=== PATIENT | female | born 1970 | race Caucasian/White ===

== ENCOUNTER 2017-07-30 07:19 | Emergency (ER) | payer OTHER ==
[~2017-07-30] VITALS: Ht 167.6 cm; Wt 51.7 kg
[2017-07-30] MEDS ORDERED: SODIUM CHLORIDE FLUSH 10ML SYR IVF ONE (08:00)
[2017-07-30] MEDS ORDERED: HYDROmorphone 1 MG/ML, 1ML IVPush PRN (08:00)
[2017-07-30] MEDS ORDERED: MORPHINE SULFATE 4 MG/ML, 1ML ONE (08:10)
[2017-07-30 08:13] LABS: MEAN CORPUSCULAR HEMOGLOBIN 32.1 pg (27.0-34.8); MEAN CORPUSCULAR HGB CONC 34.1 g/dL (32.4-35.8); MEAN PLATELET VOLUME 8.5 fL (7.4-10.4); PLATELET COUNT 345 x10^3/uL (130-400); RED BLOOD COUNT 4.17 x10^6/uL (3.82-5.3); RED CELL DISTRIBUTION WIDTH 13.4 % (9.6-15.2)
[2017-07-30 08:23] LABS: ALANINE AMINOTRANSFERASE 16 U/L (12-78); ALBUMIN 3.8 g/dL (3.4-5.0); ANION GAP 8 mmol/L (5-15); CALCIUM 8.4 mg/dL (8.5-10.1); CHLORIDE 103 mmol/L (98-107)
[2017-07-30 08:28] LABS: ALKALINE PHOSPHATASE 83 U/L (45-117); BILIRUBIN,TOTAL 0.5 mg/dL (0.2-1.0); CREATININE 0.77 mg/dL (0.55-1.02); TOTAL PROTEIN 7.9 g/dL (6.4-8.2)
[2017-07-30] MEDS ORDERED: MORPHINE SULFATE 4 MG/ML, 1ML IVPush PRN (08:30)
[2017-07-30 08:32] LABS: BASOPHILS # (AUTO) 0.08 x10^3/uL (0-0.1); BASOPHILS % (AUTO) 1 % (0-1); EOSINOPHILS # (AUTO) 0.04 x10^3/uL (0-0.4); EOSINOPHILS % (AUTO) 0 % (1-7); LYMPHOCYTES # (AUTO) 1.57 x10^3/uL (1-3.4); LYMPHOCYTES % (AUTO) 9 % (22-44); MD SCAN; MONOCYTES # (AUTO) 1.27 x10^3/uL (0.2-0.8); MONOCYTES % (AUTO) 7 % (2-9); NEUTROPHILS # (AUTO) 15.36 x10^3/uL (1.8-6.8); NEUTROPHILS % (AUTO) 84 % (42-75)
[2017-07-30 08:35] LABS: MICROSCOPIC AUTO
[2017-07-30 08:36] LABS: CULTURE INDICATED? YES
[2017-07-30] MEDS ORDERED: KETOROLAC 30 MG/1 ML ONE (09:07)
[2017-07-30] MEDS ORDERED: KETOROLAC 30 MG/1 ML IVPush ONE (09:30)
[2017-07-30 09:54] VITALS: BP 118/76
[2017-07-30] MEDS ORDERED: CEFTRIAXONE PMX 1GM/50ML 50 ML IV ONE (10:00)
[2017-07-30] MEDS ORDERED: CEFTRIAXONE PMX 1GM/50ML 50 ML ONE (10:00)
== END 2017-07-30 10:30 | disposition home or self-care (01) ==
LOC: ED 09:49
DX: N13.2 Hydronephrosis with renal and ureteral calculous obstruction (principal); N30.01 Acute cystitis with hematuria; N10 Acute pyelonephritis
CPT/HCPCS: 36415; 74176; 80053; 81001; 84703; 85025; 87077; 87086; 96365; 96375; 99285; J0696; J1885; 87186